=== PATIENT | male | born 1945 | race Caucasian/White ===

== ENCOUNTER 2017-07-07 10:46 | Outpatient (CLI) | payer MEDICARE, OTHER ==
--- NOTE | 2017-07-07 12:04 | CT ---
CT LUMBAR SPINE WITHOUT CONTRAST: Date: 07/07/17 HISTORY: Lumbar fusion. Low back pain. Patient radiates down both legs, left greater than right. COMPARISON: None. TECHNIQUE: Lumbar spine CT is performed without contrast. Reformatted images are submitted for interpretation. FINDINGS: There are five lumbar-type vertebral bodies. Vacuum disc phenomenon at L2-L3, L3-L4, L4-L5, and L5-S1 . There are bilateral transpedicular screws at L4-5. There is mild leftward curvature of the lumbar s pine. With regard to the fusion hardware, no evidence of lucency. No retroperitoneal mass, lymphadenopathy, or hematoma. Punctate nonobstructing calcifications in the left or right renal pelvis. Hypodensity in the liver measures 1.8 cm and has an attenuation coefficient of 12 Hounsfield units. S imple cyst is favored. Limited evaluation of the contents of the central spinal canal and neural foramina due to technique. Lumbar spine vertebral body height is maintained. There are no fractures. T12-L1: No significant central canal stenosis or foraminal narrowing. L1-L2: No significant central canal stenosis or foraminal narrowing. L2-L3: Generalized disc bulge, ligamentum flavum thickening, and facet hypertrophy result in mild central ca nal stenosis. Mild bilateral neural foraminal narrowing. L3-L4: Generalized disc bulge, ligamentum flavum thickening, and facet hypertrophy result in at least mild t o moderate central canal stenosis. Evaluation is limited by beam-attenuation artifact. Moderate right and mild left foraminal narrowing. There appears to be an abnormal soft tissue density in the left s ubarticular zone superior to the L3-L4 disc space suggesting superior disc extrusion. Extruded fragme nt appears to be at least 1.6 cm mediolateral x 1.2 cm anterior posterior. There is presumed mass eff ect and obscuration of the traversing left L3 and possibly L4 nerve roots. Evaluation is limited by t echnique. L4-L5: Limited evaluation by beam attenuation artifact. There appears to be a broad based disc bulge, ligame ntum flavum thickening, and facet hypertrophy that results in at least mild to moderate central canal stenosis. There is mild right foraminal narrowing. Left neural foramen is patent. There is 3.5 mm of anterolisthesis of L4 upon L5. L5-S1: Vacuum disc phenomenon with severe loss of disc space height. Generalized disc bulge without signific ant central canal stenosis. The right neural foramen is patent. Moderate left foraminal narrowing. No te is made of a left hemilaminectomy defect. IMPRESSION: 1. Postsurgical changes of the lumbar spine as above. Evaluation is limited by technique. 2. Varying degrees of central canal stenosis and foraminal narrowing as detailed above. 3. Significant superior disc extrusion at the L3-L4 level, into the left subarticular zone. Better i nterrogation with post myelogram CT may be beneficial. POS: EVON
== END 2017-07-07 10:47 | disposition home or self-care (01) ==
LOC: TBSIIMAG 10:46
PROVIDERS: ATTEND Neurological Surgery
DX: M54.5 Low back pain (principal); M48.061 Spinal stenosis, lumbar region without neurogenic claudication; M99.83 Other biomechanical lesions of lumbar region; M51.26 Other intervertebral disc displacement, lumbar region; Z98.1 Arthrodesis status
CPT/HCPCS: 72131

== ENCOUNTER 2017-08-04 11:27 | Outpatient (CLI) | payer MEDICARE, OTHER | END 2017-08-04 11:28 | disposition home or self-care (01) | LOC: LABBT 11:27 | PROVIDERS: ATTEND Neurological Surgery | DX: Z01.818 Encounter for other preprocedural examination (principal); M54.16 Radiculopathy, lumbar region ==

== ENCOUNTER 2017-08-08 07:29 | Day surgery (SDC) | payer MEDICARE, OTHER ==
[2017-08-04 11:56] VITALS: BMI 27.0
--- NOTE | 2017-08-07 23:13 | HP ---
HISTORY OF PRESENT ILLNESS: Mr. Bui is known to us for previous lumbar diskectomy last year, who returns now for evaluation of significant low back pain as well as left knee pain, which has been com ing on for the last several weeks. He now has a new CT scan performed at [place] that reveals a s uperiorly migrated L3-L4 disk herniation that is the likely cause of his symptoms. He would like to discuss options and then proceed forward with what he feels most comfortable. PAST MEDICAL HISTORY: Significant for arrhythmia, reflux, arthritis, seasonal allergies. PAST SURGICAL HISTORY: Septoplasty, lumbar fusion, lumbar diskectomy. MEDICATIONS: Methotrexate, Paxil, Cardura, Nexium, gabapentin. ALLERGIES: No known drug allergies. PHYSICAL EXAMINATION: NEUROLOGIC: Alert and oriented x3. Gait is severely antalgic. Lower extremity motor exam is normal . ASSESSMENT: Lumbar disk herniation. PLAN: Dr. Castle met with the patient, reviewed imaging and advocated for reoperation left L3 diskect alem. He explained to the patient the risks, benefits, and alternatives to the procedure. The patien t expressed understanding and would like to move forward with surgery as discussed. I do believe the patient is mentally competent and capable of making medical decisions for himself. We will move for sam with surgery as planned. Grant Adams PA-C dictating for Dr. Castle.
[2017-08-08] MEDS ORDERED: CEFAZOLIN/Water 2 GM/20 ML SYRINGE ONE ×2 (08:29→14:14)
[2017-08-08] MEDS ORDERED: Hydrocortisone Sod Succ/PF 100 mg/2 ml Vial ONE (08:30)
[2017-08-08] MEDS ORDERED: Thrombin 5000 UNITS/5 ML VIAL ONE (08:36)
[2017-08-08] MEDS ORDERED: Bupivacaine HCl 0.5%/Epinephrine 1:200,000/PF 30 ml Vial ONE (08:36)
[2017-08-08] MEDS ORDERED: Fentanyl 250 MCG/5 ML VIAL ONE (10:17)
[2017-08-08] MEDS ORDERED: Ondansetron HCl/PF 4 MG/2 ML Vial ONE ×2 (11:05→11:45)
[2017-08-08] MEDS ORDERED: ePHEDrine/0.9% NaCl/PF SYRINGE 50 mg/10 ml ONE (11:45)
[2017-08-08] MEDS ORDERED: Lidocaine 1% PF 5 ML VIAL ONE (11:45)
[2017-08-08] MEDS ORDERED: PROPOFOL 200 MG/20 ML VIAL ONE (11:45)
[2017-08-08] MEDS ORDERED: Glycopyrrolate 0.2 MG/ML 5 ML SYRINGE ONE (11:45)
[2017-08-08] MEDS ORDERED: Tamsulosin HCl 0.4 MG CAP ONE (11:49)
[2017-08-08] MEDS ORDERED: Acetaminophen/Codeine 30-300mg Tablet ONE ×2 (13:34)
--- NOTE | 2017-08-09 14:26 | OP ---
DATE OF PROCEDURE: 08/08/2017 SURGEON: Marcelo Castle M.D. FOOD MIXER ASSEMBLER: Grant Adams PA-C. INDICATION: Pain. DIAGNOSIS: Lumbar radiculopathy. PROCEDURE PERFORMED: L3-L4 discectomy. TECHNIQUE: The patient was brought into the operating room and placed under general anesthesia. He was flipped from a supine to prone position on the operating room table. A linear incision was plann ed over the L3-L4 segment. After prepping and draping and after an appropriate operation, the incisi on was created. There was extensive scar present from the patient's prior operative procedure and th erefore an appropriate surgical modifier will be applied. Self-retaining retractors were placed on t he left and once identifying the appropriate level with C-arm fluoroscopy, a high-speed cutting drill bit as well as 2, 3 and 4 mm Kerrisons were used to perform a laminectomy along the inferior aspect of L3 and the superior aspect of L4. A large disk fragment as well as ligamentous hypertrophy were i dentified and carefully removed until the lateral recesses were well decompressed, which would includ e decompressing the exiting L3 and descending L4 nerve roots. The wound was then irrigated. Hemosta sis was maintained throughout. The wound was then closed in anatomic layers and a pressure dressing was applied. There were no known procedural complications.
== END 2017-08-08 14:25 | disposition home or self-care (01) ==
LOC: SDC 07:29
PROVIDERS: ATTEND Neurological Surgery
PROC: 01NB0ZZ Release Lumbar Nerve, Open Approach (ICD-10-PCS; principal; 2017-08-08)
PROC: 0SB20ZZ Excision of Lumbar Vertebral Disc, Open Approach (ICD-10-PCS; 2017-08-08)
DX: M51.16 Intervertebral disc disorders with radiculopathy, lumbar region (principal); M19.90 Unspecified osteoarthritis, unspecified site; K21.9 Gastro-esophageal reflux disease without esophagitis; Z98.1 Arthrodesis status; Z98.890 Other specified postprocedural states; Z79.899 Other long term (current) drug therapy
CPT/HCPCS: 76001; J0131; J0670; J1720; J2001; J2405; J2704; J3010

== ENCOUNTER 2018-10-13 10:42 | Outpatient (CLI) | payer MEDICARE, OTHER ==
--- NOTE | 2018-10-13 11:18 | RAD ---
XR Lumbar Spine 2 Or 3 View: 10/13/2018 12:00 AM CLINICAL INDICATION: Radiculopathy COMPARISON: 05/25/2016 FINDINGS: Fracture:No acute fracture. Arthropathy:Moderate arthropathy. There is grade I spondylolisthesis of L4-5 with correction demonstrated by extension positioning. Postoperative fusion of the L4-5 level with bilateral pedicle screws and bilateral interconnecting ro ds present. IMPRESSION: 1. Grade 1 spondylolisthesis of L4-5. This does correct upon extension indicating translational motio n.
--- NOTE | 2018-10-13 12:38 | MRI ---
MRI LUMBAR SPINE WITHOUT CONTRAST: COMPARISON: Prior CT lumbar spine dated 07/07/2017 and a lumbar radiograph dated 10/13/2018. FINDINGS: There is instrumentation seen at the L4-L5 intervertebral level, consistent with a posterolateral sp inal fusion. This is stable to the prior examinations. The conus is seen to terminate at approximat blanco L1. The visualized aspects of the posterior fossa and paravertebral soft tissues are unremarkable appeari ng. At L5-S1, there is an asymmetric to the left disk osteophyte complex with facet joint degenerative ch yohan and loss of disk space height, inducing moderate left and mild right neural foraminal narrowing. At L4-L5, there is a residual osteophyte complex with facet hypertrophy and ligamentum flavum hypertr ophy, inducing mild to moderate central canal narrowing. There is moderate to severe right and mild left neural foraminal narrowing at this level. At L3-L4, there is a broad-based disk osteophyte complex with facet joint degenerative change and lig amentum flavum hypertrophy, inducing mild to moderate central canal narrowing and severe right and mo derate left neural foraminal narrowing. At L2-L3, there is an tnfvfxlvfr-oc-uvs-left disk osteophyte complex with facet joint degenerative ch yohan, inducing mild to moderate right and moderate left neural foraminal narrowing. There is a left inferior projecting paracentral disc extrusion, measuring 1.4 cm in craniocaudad length, causing some mild effacement of the ventral subarachnoid space. At L1-L2, there is a broad-based bulge with facet joint degenerative change, but no appreciable centr al canal or neural foraminal narrowing. At T12-L1, there is no appreciable central canal or neural foraminal narrowing. IMPRESSION: 1. Prominent neural foraminal and central canal narrowing seen from L2-L3 through L5-S1, as above. 2. Grade 1 anterolisthesis of L4-L5, with posterolateral spinal instrumentation at L4-L5. 3. Caudad extending left paracentral disc extrusion from L2-L3, extending along the posterior aspect of L3, causing mild effacement of the subarachnoid space, without definite lateral recess impingemen t. POS: TPC
== END 2018-10-13 10:43 | disposition home or self-care (01) ==
LOC: SCSMRI 10:42
PROVIDERS: ATTEND Nurse Practitioner Family
DX: M51.16 Intervertebral disc disorders with radiculopathy, lumbar region (principal); M48.061 Spinal stenosis, lumbar region without neurogenic claudication; M48.07 Spinal stenosis, lumbosacral region; M43.16 Spondylolisthesis, lumbar region
CPT/HCPCS: 72100; 72148

== ENCOUNTER 2019-05-25 10:15 | Outpatient (CLI) | payer MEDICARE, OTHER ==
--- NOTE | 2019-05-25 11:14 | CT ---
CT of thelumbar spine: 05/25/2019 COMPARISON:07/07/2017 HISTORY:Back pain, prior back surgery TECHNIQUE: Serial axial CT imaging at2 mm intervals from thelower thoracic spine through the lower sa carlos without contrast media. Coronal and sagittal reformatted imaging obtained Findings:Posterior fusion hardware with bilateral L4 and L5 pedicle screws noted with vertically orie nted interlocking rods. Subcentimeter bilateral intrarenal calculi are noted measuring up to 3 mm within the upper pole of th e right kidney and measuring up to 4 mm within the upper pole left kidney, only partially visualized on this exam. On the coronal reformatted imaging the L2 vertebral body is demonstrating a moderate degree of sublux ation to the right with respect to the L3 vertebral body. T12-L1: Mild bilateral facet hypertrophy. No osseous cause of significant central canal or neural for aminal stenosis. L1-2: Mild bilateral facet hypertrophy. Mild bilateral neural foraminal stenosis suspected. No osseou s cause of significant central canal stenosis. L2-3: There is severe degenerative endplate change with endplate irregularity and vacuum disc formati on. Disc osteophyte complex suspected. Bilateral facet hypertrophy. There is moderate/severe central canal stenosis with prominent left lateral recess stenosis and at least moderate bilateral ne ural foraminal stenosis, left greater than right. L3-4: There is severe bilateral facet hypertrophy. There is osteophyte encroachment on the neural for sukhdev bilaterally with moderate left and severe right neural foraminal stenosis. There is severe central canal stenosis secondary to disc osteophyte complex and bilateral facet hypertrophy/hypertrop hy of the ligamentum flavum. L4-5: There is prominent disc space narrowing. There is 4 mm of anterolisthesis of L4 on L5. Bilatera l facet hypertrophy is noted with moderate bilateral neural foraminal stenosis. On the basis of posterior osteophyte formation and bilateral facet hypertrophy there is moderate/severe central canal stenosis. L5-S1: There is disc space narrowing with vacuum disc formation. Prominent bilateral facet hypertroph y, left greater than right. Severe left and moderate right neural foraminal stenosis. No significant central canal stenosis. No acute fracture or dislocation. No worrisome lytic or blastic bone lesions. Impression:Multilevel lumbar spine postoperative change. Severe multilevel degenerative change with a ssociated prominent multilevel central canal and neural foraminal stenosis as detailed above. CT myelogram may be beneficial for full assessment.
== END 2019-05-25 10:16 | disposition home or self-care (01) ==
LOC: SCSCT 10:15
PROVIDERS: ATTEND Neurological Surgery
DX: M47.26 Other spondylosis with radiculopathy, lumbar region (principal); M48.061 Spinal stenosis, lumbar region without neurogenic claudication; Z98.890 Other specified postprocedural states
CPT/HCPCS: 72131

== ENCOUNTER 2019-05-30 05:50 | Day surgery (SDC) | payer MEDICARE, OTHER ==
[2019-05-29 11:17] VITALS: BMI 25.1
--- NOTE | 2019-05-29 15:33 | HP ---
HISTORY OF PRESENT ILLNESS: prior lumbar surgeries, who returns now with continued and worsening right lower extremity L3 pains which we discussed in the past. He has been seeing Dr. Warren who has been attempting epidural steroid injections, and while first in October made a tremendous difference, his most recent one in January did not help much or any at all. He does also report some muscle atrophy over the right quadriceps group and some perceived weakness. Walking makes pain severe, bending over improves the pain. MRI from [facility] from September 2018, L3 on the right that would very well fit the symptoms that he is experiencing. PHYSICAL EXAMINATION: GENERAL: On examination, he is alert and oriented x3. Gait is altered and antalgic. He favors the right lower extremity. When he holds his right leg out in front of him in full knee extension, he is only able to do so for about 8 to 10 seconds before he starts to have give-way weakness. This is not the same phenomenon on the left. There is perhaps maybe some mild sensory change disturbance over the right anterior thigh as compared to the left. PAST MEDICAL HISTORY: Significant for BPH, hypertension, unspecified rheumatologic condition, chronic pain syndrome. CURRENT MEDICATIONS: 1. Restasis. 2. Doran. 3. Plaquenil. 4. Mirapex. 5. Focalin XR. 6. Leflunomide. 7. Bystolic. 8. Flomax. PAST SURGICAL HISTORY: L4-L5 fusion, septoplasty, lumbar decompression. ALLERGIES: NO KNOWN DRUG ALLERGIES. ASSESSMENT: Lumbar spinal stenosis or radiculopathy. PLAN: Dr. Castle met with the patient, reviewed imaging, and advocated for reoperation, decompression and foraminotomy at L3 with extension and fusion to L3 bilaterally. He explained the patient risks, benefits, and alternatives to the procedure. The patient expressed understanding and elected to move forward with surgery as discussed. I do believe the patient is mentally competent and capable of making medical decisions for himself. We will move forward with surgery as planned. Job ID: [id number]
[2019-05-30] MEDS ORDERED: Midazolam HCl 2 mg/2 ml Vial ONE (06:11)
[2019-05-30] MEDS ORDERED: HYDROmorphone 0.5 MG/0.5 ML SYRINGE ONE (06:11)
[2019-05-30] MEDS ORDERED: Fentanyl 100 MCG/2 ML VIAL ONE (06:11)
[2019-05-30] MEDS ORDERED: Lidocaine 2% Jelly 5 ML TUBE ONE (06:12)
[2019-05-30] MEDS ORDERED: Thrombin 5000 UNITS/5 ML VIAL ONE (06:23)
[2019-05-30] MEDS ORDERED: EPINEPHrine 1 MG/ML AMP ONE (06:23)
[2019-05-30] MEDS ORDERED: Bupivacaine PF 0.5% 30 ML VIAL ONE (06:23)
[2019-05-30 06:26] LABS: #Eosinphils 0.2 thou/uL (0.0-0.7); #Lymphocytes 1.3 thou/uL (1.20-3.40); #Monocytes 0.6 thou/uL (0.11-0.59); #Neutrophils 3.2 thou/uL (1.40-6.50); %Basophils 0.4 % (0.0-1.0); %Eosinophils 3.7 % (0.0-10.0); %Lymphocytes 25.1 % (21.0-51.0); %Monocytes 10.9 % (0.0-10.0); %Neutrophils 59.9 % (42.0-75.0); Hemoglobin 14.6 g/dL (14.0-18.0); Mean Corpuscular Hemoglobin 32.6 pg (27.0-31.0); Mean Corpuscular Volume 95.8 fL (78.0-98.0); Mean Platelet Volume 8.4 fL (7.4-10.4); Platelet Count 161 thou/uL (130-400); Red Blood Cell (RBC) Count 4.48 mill/uL (4.70-6.10); White Blood Cell (WBC) Count 5.3 thou/uL (4.8-10.8)
[2019-05-30 06:46] LABS: Anion Gap 11 mmol/L (10-20); BUN (Urea Nitrogen) 12 mg/dL (8.4-25.7); Calc. Creatinine Clearance 96 mL/min (70-130); Calcium 9.2 mg/dL (7.8-10.44); Carbon Dioxide 25 mmol/L (23-31); Chloride 107 mmol/L (98-107); Estimated GFR-MDRD Greater than 90; Glucose 104 mg/dL (83-110); Sodium 139 mmol/L (136-145)
[2019-05-30] MEDS ORDERED: Lidocaine 1% PF 5 ML VIAL ONE (09:58)
[2019-05-30] MEDS ORDERED: EPHEDRINE 25 MG/5 ML SYRINGE ONE (09:58)
[2019-05-30] MEDS ORDERED: Ondansetron PF 4 MG/2 ML Vial ONE (09:58)
[2019-05-30] MEDS ORDERED: Rocuronium Bromide 10 MG/ML (10ML VIAL) ONE (09:58)
[2019-05-30] MEDS ORDERED: Glycopyrrolate 0.2 MG/ML 5 ML SYRINGE ONE (09:58)
[2019-05-30] MEDS ORDERED: PHENYLEPHRINE-NS 100 MCG/ML 10 ML SYRINGE ONE (09:58)
[2019-05-30] MEDS ORDERED: Dexamethasone 20 MG/5 ML VIAL ONE (09:58)
[2019-05-30] MEDS ORDERED: PROPOFOL 200 MG/20 ML VIAL ONE (09:58)
[2019-05-30] MEDS ORDERED: Tamsulosin HCl 0.4 MG CAP ONE (10:48)
--- NOTE | 2019-05-30 10:51 | OP ---
DATE OF PROCEDURE: 05/30/2019 RESEARCH AND INSIGHTS EXECUTIVE: Grant Adams PA-C INDICATION: Pain. DIAGNOSIS: Lumbar radiculopathy with lumbar spondylolisthesis. PROCEDURES PERFORMED: Reoperation, exploration of fusion, removal of hardware at L4-L5 bilaterally, placement of pedicle screws at L3 bilaterally, placement of rods across L3 through L5 bilaterally, laminectomy and medial facetectomy at L3-L4 bilaterally, placement of allograft and placement of autograft. ANESTHESIA: General. DESCRIPTION OF PROCEDURE: The patient was brought into the operating room and placed under general anesthesia. He was flipped from the supine to prone position on the operating room table. A linear incision was planned, which incorporated much of a previous incision. After prepping and draping and after an appropriate preoperative pause, the incision was created. The soft tissues were swept away from midline. Self-retaining retractors were placed in the wound for optimal exposure. The patient's prior hardware was identified at L4 and L5. We used the C-arm images to obtain appropriate localization of L3, where a laminectomy was performed. The laminectomy was extended laterally to encompass the medial aspect of the facet joints in order to decompress the lateral recesses and identify the L3 segment. The patient was severely scoliotic with translational move in the lateral plane making the surgery to take longer to appropriately identify structures as well as dissect through scar. The thecal sac was identified at L3-L4 and the L3 pedicles were identified. Pedicle screws were placed in L3 bilaterally with the aid of C-arm fluoroscopy. An intraoperative 3D CT scan was then performed to confirm appropriate placement of hardware. Rods were then placed across L3, L4, and L5 bilaterally and setscrews were placed. These were then final tightened. The L3-L4 segment was slightly distracted in order to decompress the exiting right L3 nerve root further. Allograft and autograft material were then placed within the lateral confines of the instrumentation construct. The wound was irrigated. Hemostasis was maintained throughout. The wound was then closed in anatomic layers and a pressure dressing was applied. There were no known procedural complications. Job ID: [id number]
--- NOTE | 2019-05-31 08:27 | EKG ---
Test Reason : PREOP Blood Pressure : / mmHG Vent. Rate : 066 BPM Atrial Rate : 066 BPM P-R Int : 196 ms QRS Dur : 078 ms QT Int : 422 ms P-R-T Axes : 046 006 056 degrees QTc Int : 442 ms Normal sinus rhythm Normal ECG Confirmed by DR. Kristin LOUISE ([id number]) on 05/31/2019 8:26:58 AM Referred By: ROSALIO Confirmed By:DR. Kristin LOUISE
== END 2019-05-30 15:10 | disposition home or self-care (01) ==
LOC: SDC 05:50
PROVIDERS: ATTEND Neurological Surgery
PROC: 0SG0071 Fusion of Lumbar Vertebral Joint with Autologous Tissue Substitute, Posterior Approach, Posterior Column, Open Approach (ICD-10-PCS; principal; 2019-05-30)
PROC: 01NB0ZZ Release Lumbar Nerve, Open Approach (ICD-10-PCS; 2019-05-30)
PROC: 0QW004Z Revision of Internal Fixation Device in Lumbar Vertebra, Open Approach (ICD-10-PCS; 2019-05-30)
DX: M43.16 Spondylolisthesis, lumbar region (principal); M54.16 Radiculopathy, lumbar region; I10 Essential (primary) hypertension; G89.4 Chronic pain syndrome; N40.0 Benign prostatic hyperplasia without lower urinary tract symptoms; G47.30 Sleep apnea, unspecified; K21.9 Gastro-esophageal reflux disease without esophagitis; M06.9 Rheumatoid arthritis, unspecified; Z79.899 Other long term (current) drug therapy; Z99.89 Dependence on other enabling machines and devices
CPT/HCPCS: 20930; 20936; 22612; 22840; 63012; 76000; 80048; 85025; 93005; C1713 ×2; 93010; J0171; J0690; J1100; J1170; J2001; J2250; J2405; J2704; J3010; S0020

== ENCOUNTER 2019-06-30 10:55 | Inpatient (IN) | payer MEDICARE, OTHER ==
[2019-06-30] MEDS ORDERED: Heparin 1,000 UNITS/ML VIAL ONE (12:57)
[2019-06-30] MEDS ORDERED: Calcium Carbonate 500 MG ChewTAB PO PRN (16:16)
[2019-06-30] MEDS ORDERED: Acetaminophen 325 MG TAB PO PRN (16:16)
[2019-06-30] MEDS ORDERED: Bisacodyl 5 MG TAB PO PRN (16:16)
[2019-06-30] MEDS ORDERED: Ondansetron ODT 4 MG TAB PO PRN (16:16)
[2019-06-30] MEDS ORDERED: Senokot S 8.6-50 MG TAB PO PRN (16:16)
[2019-06-30] MEDS ORDERED: HYDROcodone/Acetaminophen 5/325 mg Tablet PO PRN (16:16)
[2019-06-30] MEDS ORDERED: Vancomycin 1 GM in Premix Bag 1 BAG IVPB SCH (16:45)
--- NOTE | 2019-06-30 17:00 | PDOC.HHP ---
Hospitalist HPI - History of Present Illness Fever, Lower Extremity weakness History of Present Illness: PCP: Dr. Rowan Neurosurgeon: Dr. Castle The H&P was gathered from the patient who is a poor historian. He is alert and oriented x 3, but he is having difficulty recalling the precise timeline of events over the past month. The patient is a 74/M with PMH significant for multiple back surgeries and scoliosis that presents to the hospital as a direct admit from the [facility] for the above complaint. Apparently, the patient underwent a lumbar laminectomy with revision on 05/30/[address] Castle. He reports feeling really good for the first week post surgery. Approximately 1 week after surgery, the patient reports that he developed subjective fever, chills and general malaise. Denies any neck stiffness, cough, SOB, nausea, vomiting or diarrhea. He had some generalized lower back soreness that he thought was similar to kidney stones, which he has had in the past. At some point, he called Dr. Oliver, his urologist, who had him drain and strain his urine, and ordered a CT stone protocol, which apparently was negative for any kidney stones , although the patient reports passing 15-20 small stones in a bucket. He is unclear if this was at home or in the hospital. Either way, his subjective fever, chills and malaise persisted, then he developed some bilateral lower extremity weakness. He was ambulating with a cane and sometimes with a roller walker, stating that he was having to use his upper body alot to remain upright/standing. Denies urinary retention/ incontinence or saddle anesthesia. He called his PCP who instructed him to go to the hospital. He was admitted to the [facility] on 06/27/2019. At the [facility], pneumonia and covid-19 was ruled out. Ultimately, it was determined that the patient had staph bacteremia and MRI of lumbar spine showed osteomyelitis with multiple abscesses. Neurosurgery was consulted and the patient was directly admitted to [facility]. ED Course: Patient was directly admitted. Dr. Davis reviewed MRI and recommended IV antibiotic therapy with PICC line placement for shelter IV therapy. Hospitalist ROS - Review of Systems Constitutional: reports: fever (subjective), chills, weakness, malaise Eyes: denies: pain, vision change, conjunctivae inflammation, eyelid inflammation, redness, other ENT: denies: ear pain, ear discharge, nose pain, nose discharge, nose congestion , mouth pain, mouth swelling, throat pain, throat swelling, other Respiratory: denies: cough, dry, shortness of breath, hemoptysis, SOB with excertion, pleuritic pain, sputum, wheezing, other Cardiovascular: denies: chest pain, palpitations, orthopnea, paroxysmal noc. dyspnea, edema, light headedness, other Gastrointestinal: denies: nausea, vomiting, abdominal pain, diarrhea, constipation, melena, hematochezia, other Genitourinary: denies: dysuria, frequency, incontinence, hematuria, retention, other Musculoskeletal: reports: back pain, leg pain. denies: neck pain, shoulder pain Skin: denies: rash Neurological: reports: weakness. 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: Other (RLS) Renal/: reports: Benign prostatic enlarg., Other (kidney stones) - Past Surgical History Past Surgical History: reports: Cholecystectomy, Other (Back surgeries x 8 Scoliosis Hernia repair) - Family History Family History: reports: Other (Positive for Scoliosis) - Social History Smoking Status: Never smoker Alcohol: reports: Rare Drugs: reports: none Living Situation: With Family Occupation: Lives in [place] with spouse, retired from [employer] Activity level: uses cane/walker - Exam General Appearance: NAD, awake alert Eye: anicteric sclera ENT: normocephalic atraumatic, moist mucosa Neck: supple, no JVD, no lymphadenopathy Heart: RRR, no murmur, no gallops, no rubs, normal peripheral pulses Respiratory: CTAB, no wheezes, no rales, no ronchi, no tachypnea Gastrointestinal: soft, non-tender, non-distended, no guarding, no rigidity Gastrointestinal - other findings: diminished bowel sounds Extremities: no cyanosis, no edema Neurological: cranial nerve grossly intact, no focal deficits Neurological - other findings: HSNE cervical and lumbar spine intact Psychiatric: normal affect, A&O x 3 Hospitalist Results - Labs Result Diagrams: 06/30/19 17:01 06/30/19 17:01 Hospitalist H&P A/P - Problem (1) Osteomyelitis of lumbar spine Code(s): M46.26 - OSTEOMYELITIS OF VERTEBRA, LUMBAR REGION Status: Acute Assessment and Plan: Admit to medical floor, inpatient status Expected length of stay at least 2 midnights Appreciate neurosurgery input Start Vanc and Zosyn IVPB Consult ID Order PICC placement IVF Get CMP, CBC, ESR (2) Bacteremia Code(s): R78.81 - BACTEREMIA Status: Acute Assessment and Plan: Blood CX 2/2 + stap on 06/25/2019 Hemodynamically stable, afebrile Start Vanc and Zosyn IVPB Consult ID IVF hydration Get baseline CMP,CBC at admission (3) Constipated Code(s): K59.00 - CONSTIPATION, UNSPECIFIED Status: Acute Assessment and Plan: LBM 7 days, he is passing flatus Likely secondary to surgery and opioid analgesia Will order prn medications (4) HTN (hypertension) Code(s): I10 - ESSENTIAL (PRIMARY) HYPERTENSION Status: Chronic Assessment and Plan: Blood pressure mildly elevated at admision Will restart home medication, Bystolic when reconciled by nursing Continue to monitor VS q 4 hours (5) BPH (benign prostatic hyperplasia) Code(s): N40.0 - BENIGN PROSTATIC HYPERPLASIA WITHOUT LOWER URINRY TRACT SYMP Status: Chronic Assessment and Plan: Will restart flomax when home meds reconciled by nursing (6) RLS (restless legs syndrome) Status: Chronic Assessment and Plan: Will restart home medications when reconciled by nursing. - Plan Plan: Consult PT/OT GI and DVT prophylaxis Full Code GAMAL Bui at [phone] Young
[2019-06-30 17:11] LABS: #Eosinphils 0.1 thou/uL (0.0-0.7); #Lymphocytes 0.9 thou/uL (1.20-3.40); #Monocytes 0.6 thou/uL (0.11-0.59); #Neutrophils 5.9 thou/uL (1.40-6.50); %Basophils 0.3 % (0.0-1.0); %Eosinophils 1.8 % (0.0-10.0); %Lymphocytes 11.6 % (21.0-51.0); %Monocytes 8.4 % (0.0-10.0); %Neutrophils 77.9 % (42.0-75.0); Hemoglobin 12.3 g/dL (14.0-18.0); Mean Corpuscular HGB CONC 33.3 g/dL (32.0-36.0); Mean Corpuscular Hemoglobin 31.1 pg (27.0-31.0); Mean Corpuscular Volume 93.3 fL (78.0-98.0); Mean Platelet Volume 7.4 fL (7.4-10.4); Platelet Count 262 thou/uL (130-400); RBC Distribution Width 11.7 % (11.5-14.5); Red Blood Cell (RBC) Count 3.97 mill/uL (4.70-6.10); White Blood Cell (WBC) Count 7.5 thou/uL (4.8-10.8)
[2019-06-30 17:32] LABS: ALT (SGPT) 45 U/L (8-55); AST (SGOT) 29 U/L (5-34); Albumin 3.4 g/dL (3.4-4.8); Alkaline Phosphatase 78 U/L (40-110); Anion Gap 14 mmol/L (10-20); BUN (Urea Nitrogen) 8 mg/dL (8.4-25.7); Bilirubin, Total 0.6 mg/dL (0.2-1.2); Calc. Creatinine Clearance 100 mL/min (70-130); Calcium 9.2 mg/dL (7.8-10.44); Carbon Dioxide 24 mmol/L (23-31); Chloride 101 mmol/L (98-107); Estimated GFR-MDRD Greater than 90; Globulin 3.7 g/dL (2.4-3.5); Glucose 102 mg/dL (83-110); Potassium 3.9 mmol/L (3.5-5.1); Protein, Total 7.1 g/dL (5.8-8.1); Sodium 135 mmol/L (136-145)
[2019-06-30] MEDS ORDERED: Polyethylene Glycol 3350 17 GM Packet PO PRN (17:53)
[2019-06-30] MEDS ORDERED: Ipratropium Bromide 0.06% Nasal Inhaler 15ml EA NARE PRN (17:53)
[2019-06-30] MEDS ORDERED: INFLIXIMAB IVPB SCH (18:00)
[2019-06-30] MEDS: Piperacillin/Tazobactam 3.375 GM in Sodium Chloride 0.9% 100 ML IVPB SCH ×2 (18:14→23:25)
[2019-06-30] MEDS: Sodium Chloride 0.9% 1,000 ML IV SCH (18:16)
--- NOTE | 2019-06-30 19:00 | HP ---
50 minutes was spent in combination of evaluating the patient's imaging and history and physical exam face to face. HISTORY OF PRESENT ILLNESS: The patient is a 74-year-old man who in early May, underwent L3 through L5 laminectomy and instrumented fusion by Dr. Castle. He did well for 2 weeks, but then has had issues related to possible kidney stones. Last week, he developed fever and continued progression of back pain with flank pain and was evaluated at [facility]. He was admitted on June 24. At that time, he was found to have mild elevated white count, fever up to 100.7, and Staph epidermidis bacteremia. He was started on vancomycin and the symptoms have improved. He has been afebrile and his white count has normalized. He still has meaningful amount of back pain, but not terribly severe. PHYSICAL EXAMINATION: Reveals normal motor function, although somewhat pain limited with antigravity proximal movement. The patient's wound is well healed, clean, dry, and intact with no fluctuance, erythema, swelling, or drainage. IMAGING STUDIES: CT and MRI scan performed at [facility] were reviewed. These suggest osteomyelitis L3 through L5 and even some possible involvement at L2-3. There does seem to be some psoas phlegmon bilaterally. There is enhancement of the surgical wound and a small fluid collection superiorly focused at the L3 level. There is no compression of any kind. 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 The presumed organism is Staph epidermidis given the bacteremia. He is on vancomycin and has been improving on vancomycin. At this point, the role of surgical washout seemed limited. The amount of fluid in the surgical cavity is quite modest, and the psoas and bony infectious involvement cannot be accessed surgically for washout or debridement. It is my opinion at this time he would be best served by ongoing IV antibiotics and no surgical intervention. If over time, he does not continue to have clinical improvement or if there is any evidence of clinical deterioration, we will need to consider removal of the hardware and more aggressive washout of the surgical cavity. Even then, his bacterial involvement of the bony structures and surrounding psoas musculature will remain and require extensive IV antibiotic treatment. I discussed the plan at length with the patient and expressed his agreement with this plan. We will continue to follow and Dr. Castle will be back Tuesday. Appreciate excellent medical care. Job ID: [id number]
[2019-06-30] MEDS: Vancomycin HCl 1.25 GM in Sodium Chloride 0.9% 250 ML 250 ML IVPB SCH (20:47)
[2019-06-30] MEDS: Leflunomide 10 mg Tablet PO SCH (20:47)
[2019-06-30] MEDS: Famotidine 20 MG TAB PO SCH (20:47)
[2019-06-30] MEDS: Tamsulosin HCl 0.4 MG CAP PO SCH (20:47)
[2019-06-30] MEDS: cycloSPORINE 0.05% Ophthalmic Droperette EA EYE SCH (21:50)
[2019-06-30] MEDS: Hydroxychloroquine Sulfate 200 MG TAB PO SCH (21:50)
[2019-07-01 05:03] LABS: #Eosinphils 0.2 thou/uL (0.0-0.7); #Lymphocytes 1.2 thou/uL (1.20-3.40); #Monocytes 0.8 thou/uL (0.11-0.59); #Neutrophils 4.6 thou/uL (1.40-6.50); %Basophils 0.3 % (0.0-1.0); %Eosinophils 2.9 % (0.0-10.0); %Lymphocytes 17.5 % (21.0-51.0); %Monocytes 12.1 % (0.0-10.0); %Neutrophils 67.2 % (42.0-75.0); Hemoglobin 11.4 g/dL (14.0-18.0); Mean Corpuscular HGB CONC 32.1 g/dL (32.0-36.0); Mean Corpuscular Hemoglobin 30.1 pg (27.0-31.0); Mean Corpuscular Volume 93.7 fL (78.0-98.0); Mean Platelet Volume 7.8 fL (7.4-10.4); Platelet Count 258 thou/uL (130-400); RBC Distribution Width 11.8 % (11.5-14.5); Red Blood Cell (RBC) Count 3.78 mill/uL (4.70-6.10); White Blood Cell (WBC) Count 6.9 thou/uL (4.8-10.8)
[2019-07-01 05:22] LABS: ALT (SGPT) 38 U/L (8-55); AST (SGOT) 22 U/L (5-34); Albumin 3.1 g/dL (3.4-4.8); Alkaline Phosphatase 72 U/L (40-110); Anion Gap 13 mmol/L (10-20); BUN (Urea Nitrogen) 9 mg/dL (8.4-25.7); Bilirubin, Total 0.6 mg/dL (0.2-1.2); Calc. Creatinine Clearance 97 mL/min (70-130); Calcium 8.9 mg/dL (7.8-10.44); Carbon Dioxide 24 mmol/L (23-31); Chloride 103 mmol/L (98-107); Estimated GFR-MDRD Greater than 90; Globulin 3.4 g/dL (2.4-3.5); Glucose 97 mg/dL (83-110); Potassium 4.1 mmol/L (3.5-5.1); Protein, Total 6.5 g/dL (5.8-8.1); Sodium 136 mmol/L (136-145)
[2019-07-01] MEDS: Piperacillin/Tazobactam 3.375 GM in Sodium Chloride 0.9% 100 ML IVPB SCH (05:59)
[2019-07-01] MEDS: Sodium Chloride 0.9% 1,000 ML IV SCH (06:00)
[2019-07-01] MEDS: Famotidine 20 MG TAB PO SCH ×2 (08:54→21:18)
[2019-07-01] MEDS: Pramipexole Di-HCl 0.125 MG TAB PO SCH (08:54)
[2019-07-01] MEDS: Nebivolol HCl 5 MG TAB PO SCH (08:54)
[2019-07-01] MEDS: Finasteride 5 MG TAB PO SCH (08:55)
[2019-07-01] MEDS: cycloSPORINE 0.05% Ophthalmic Droperette EA EYE SCH ×2 (08:55→21:19)
[2019-07-01] MEDS: Enoxaparin Sodium 40 MG/0.4 ML SYRINGE SC SCH (08:55)
[2019-07-01] MEDS: Hydroxychloroquine Sulfate 200 MG TAB PO SCH ×2 (08:55→21:34)
[2019-07-01] MEDS: Docusate 100 MG CAP PO SCH (08:55)
--- NOTE | 2019-07-01 15:32 | PRG ---
DATE OF SERVICE: 07/01/2019 SUBJECTIVE: This is a followup note from my consultation at [facility] when he was initially admitted with fever. MRI demonstrated inflammatory process in the lumbosacral area with diskitis, I believe L2-L3 and paraspinal inflammatory process as well, maybe a little abscess. I believe the L4-L5 was involved as well. He has been transferred here and Dr. Reilly has evaluated this patient, and no surgical intervention for the moment is recommended. He did have Staphylococcus epidermidis with fairly high vancomycin DONNELL. The patient seems to be improving slowly, still with moderate pain in the lumbosacral spine area and he has no respiratory symptoms. Voiding without difficulty. Little bit of constipation. OBJECTIVE: VITAL SIGNS: His temperature has normalized compared with what he had been doing at [facility]. Other vital signs are not remarkable. GENERAL: Awake, alert, oriented. LUNGS: Clear. HEART: S1, S2. Regular rate. ABDOMEN: Soft. Not distended or tender. NEURO: Good. He has nonfocal findings. LABORATORY DATA: White cell count at 6.9, hemoglobin 11, platelets 258 with 67% neutrophils. Sodium 136, creatinine 0.81, albumin 3.1. The microbiology with Staph epidermidis as noted before from June 24. ASSESSMENT AND DISCUSSION: Prior recent fusion of lumbosacral spine area with now fever, worsening lower back pain, and inflammatory process in lumbosacral area. Some of the inflammatory changes are noted above the site of the fusion, some are bright at the site of the fusion. There is some significant amount of paraspinal inflammatory process as well. I believe the blood cultures reflect the organism, which was causing the process and seems to be responding to the vancomycin, and we will have to continue treating this for protracted period of time. PICC line has been ordered and we will place instructions to corrections caseworker. Job ID: [id number]
--- NOTE | 2019-07-01 16:44 | PDOC.HOSPP ---
- Subjective Encounter Date: 07/01/19 Encounter Time: 11:00 Subjective: Patient seen and examined for Lumbar Osteomyelitis. Feels gen weak. Some left sided flank pain. No new complaints. No overnight events - Objective Vital Signs & Weight: Vital Signs (12 hours) Temp Pulse Resp BP Pulse Ox 07/01/19 16:09 98.6 F 81 16 138/76 98 07/01/19 10:59 98.3 F 95 18 113/72 96 07/01/19 07:13 98.7 F 90 16 141/76 H 93 L Weight Weight 182 lb 15.739 oz I&O: 06/30/19 07/01/19 07/02/19 06:59 06:59 06:59 Intake Total 1170 Balance 1170 Result Diagrams: 07/01/19 04:42 07/01/19 04:42 EKG Reviewed by me: Yes (Tele SR) Hospitalist ROS - Review of Systems Respiratory: denies: cough, dry, shortness of breath, hemoptysis, SOB with excertion, pleuritic pain, sputum, wheezing, other Cardiovascular: denies: chest pain, palpitations, orthopnea, paroxysmal noc. dyspnea, edema, light headedness, other Gastrointestinal: denies: nausea, vomiting, abdominal pain, diarrhea, constipation, melena, hematochezia, other - Medication Medications: Active Medications Generic Name Dose Route Start Last Admin Trade Name Freq PRN Reason Stop Dose Admin Cyclosporine 0.4 ml 06/30/19 21:00 07/01/19 08:55 Restasis EA EYE 0.4 ml BID CAROLE Administration Docusate Sodium 100 mg 07/01/19 09:00 07/01/19 08:55 Colace PO 100 mg DAILY CAROLE Administration Enoxaparin Sodium 40 mg 07/01/19 09:00 07/01/19 08:55 Lovenox SC 40 mg 0900 CAROLE Administration Famotidine 20 mg 06/30/19 21:00 07/01/19 08:54 Pepcid PO 20 mg BID CAROLE Administration Finasteride 5 mg 07/01/19 09:00 07/01/19 08:55 Proscar PO 5 mg DAILY CAROLE Administration Hydroxychloroquine Sulfate 200 mg 06/30/19 21:00 07/01/19 08:55 Plaquenil PO 200 mg BID CAROLE Administration Sodium Chloride 1,000 mls @ 75 mls/hr 06/30/19 16:30 07/01/19 06:00 Normal Saline 0.9% IV Not Given .[id number] CAROLE Vancomycin HCl 1.25 gm/ Sodium 250 mls @ 166.667 mls/hr 06/30/19 18:00 20:47 Chloride IVPB 250 mls 1800 CAROLE Administration Leflunomide 30 mg 06/30/19 21:00 06/30/19 20:47 Arava PO 30 mg QPM CAROLE Administration Nebivolol 15 mg 07/01/19 09:00 07/01/19 08:54 Bystolic PO 15 mg DAILY CAROLE Administration Pramipexole Dihydrochloride 0.125 mg 07/01/19 09:00 07/01/19 08:54 Mirapex PO 0.125 mg DAILY CAROLE Administration Tamsulosin HCl 0.4 mg 06/30/19 21:00 06/30/19 20:47 Flomax PO 0.4 mg QPM CAROLE Administration - Exam General Appearance: NAD Neck: supple, no JVD Heart: RRR, no gallops Respiratory: no wheezes, no ronchi Gastrointestinal: non-distended, normal bowel sounds Gastrointestinal - other findings: left flank tenderness Extremities: no cyanosis Neurological: no new deficit Hosp A/P - Plan DVT proph w/SCDs Lumbar Osteomyelitis Staph epi bacteremia HTN RLS RA s/p SVT s/p ablation BPH Hyponatremia PLAN: Cont IV Vancomycin DC Zosyn Cont Bystolic Cont other meds as above ID/NSG input appreciated PICC line
[2019-07-01] MEDS: Vancomycin HCl 1.25 GM in Sodium Chloride 0.9% 250 ML 250 ML IVPB SCH (18:11)
[2019-07-01] MEDS: Tamsulosin HCl 0.4 MG CAP PO SCH (21:18)
[2019-07-01] MEDS: Leflunomide 10 mg Tablet PO SCH (21:19)
[2019-07-01] MEDS: HYDROcodone/Acetaminophen 5/325 mg Tablet PO PRN (21:33)
[2019-07-02] MEDS: Saccharomyces boulardii 250 MG CAP PO SCH (08:50)
[2019-07-02] MEDS: Docusate 100 MG CAP PO SCH (08:50)
[2019-07-02] MEDS: Nebivolol HCl 5 MG TAB PO SCH (08:51)
[2019-07-02] MEDS: Famotidine 20 MG TAB PO SCH ×2 (08:53→20:54)
[2019-07-02] MEDS: Pramipexole Di-HCl 0.125 MG TAB PO SCH (08:54)
[2019-07-02] MEDS: Hydroxychloroquine Sulfate 200 MG TAB PO SCH ×2 (08:54→20:53)
[2019-07-02] MEDS: Finasteride 5 MG TAB PO SCH (08:54)
[2019-07-02] MEDS: HYDROcodone/Acetaminophen 5/325 mg Tablet PO PRN ×2 (08:55→22:13)
[2019-07-02] MEDS: cycloSPORINE 0.05% Ophthalmic Droperette EA EYE SCH ×2 (08:57→20:54)
[2019-07-02] MEDS: Enoxaparin Sodium 40 MG/0.4 ML SYRINGE SC SCH (09:08)
--- NOTE | 2019-07-02 09:41 | SPC ---
Ultrasound and Fluoroscopic guided left upper extremity PICC placement HISTORY: Bacteremia, infection lumbar spine. FINDINGS: Informed consent obtained prior to the procedure. An appropriate access site was determined with ultrasound guidance. The area was then meticulously pr epped and draped in usual sterile fashion. Skin overlying the left basilic vein anesthetized with 1% buffered lidocaine. Utilizing direct sonogr aphic guidance, vascular access is obtained via the left basilic vein, and an 0.018in guidewire was advanced to the distal SVC. Intravascular length is calculated at 46 cm, and the PICC is cut accordin gly. Needle is removed and replaced with a peel-away sheath. The PICC was advanced over the wire. Wire and peel-away sheath were removed. The tip of the catheter overlies the distal SVC. The catheter was accessed and aspirated/flushed easily. Exposure data: 0.1 minutes of fluoroscopic time 399 mGy centimeter squared FINDINGS: Technically successful placement of a 46 centimeter single lumen 5 Khmer left upper extremity PICC l ine. IMPRESSION: Successful ultrasound guided placement of a left upper extremity PICC.
--- NOTE | 2019-07-02 11:07 | PRG ---
DATE OF SERVICE: 07/02/2019 Mr. Bui extension of lumbar fusion construct roughly a month ago, who was admitted over the weekend for bacteremia and what appears to be osteomyelitis and diskitis at the level above his fusion site at L2-L3 as seen on both CT scan and MRI performed at the [facility] before his transfer to [facility]. He already has been seen by Dr. Pena with plan for PICC line placement this morning. His white counts have normalized and on the whole, his back pain is improved as well. His mentation was off some last week according to during our discussion on Tuesday, but this also seems to be much improved. Hopefully, we can proceed with placement of this line. Continue antibiotics and set up home health delivery of his PICC line antibiotics. At this time, we will still intend to pursue this from a medical line of treatment only. Can advance with PT and OT as tolerated. After PICC line placement today, he can advance diet as tolerated as well. We will continue to follow along. Job ID: [id number]
--- NOTE | 2019-07-02 13:51 | PDOC.HOSPP ---
- Subjective Encounter Date: 07/02/19 Encounter Time: 12:30 Subjective: Patient seen and examined for Lumbar Osteo. Back pain improving. No fever or chills. No new complaints. No overnight events - Objective Vital Signs & Weight: Vital Signs (12 hours) Temp Pulse Resp BP Pulse Ox 07/02/19 11:00 98.2 F 79 16 126/72 97 07/02/19 07:09 98.5 F 90 16 150/78 H 98 07/02/19 03:49 99.4 F 86 16 150/80 H 97 Weight Weight 182 lb 15.739 oz I&O: 07/01/19 07/02/19 07/03/19 06:59 06:59 06:59 Intake Total 1170 900 Output Total 600 Balance 1170 300 Result Diagrams: 07/01/19 04:42 07/01/19 04:42 Hospitalist ROS - Review of Systems Respiratory: denies: cough, dry, shortness of breath, hemoptysis, SOB with excertion, pleuritic pain, sputum, wheezing, other Cardiovascular: denies: chest pain, palpitations, orthopnea, paroxysmal noc. dyspnea, edema, light headedness, other Gastrointestinal: denies: nausea, vomiting, abdominal pain, diarrhea, constipation, melena, hematochezia, other - Medication Medications: Active Medications Generic Name Dose Route Start Last Admin Trade Name Freq PRN Reason Stop Dose Admin Hydrocodone Bitart/Acetaminophen 1 tab 06/30/19 16:16 07/02/19 08:55 [place] 5/325 PO 1 tab Q4H PRN Administration Moderate Pain (4-6) Cyclosporine 0.4 ml 06/30/19 21:00 07/02/19 08:57 Restasis EA EYE 0.4 ml BID CAROLE Administration Docusate Sodium 100 mg 07/01/19 09:00 07/02/19 08:50 Colace PO 100 mg DAILY CAROLE Administration Enoxaparin Sodium 40 mg 07/01/19 09:00 07/02/19 09:08 Lovenox SC Not Given 0900 CAROLE Famotidine 20 mg 06/30/19 21:00 07/02/19 08:53 Pepcid PO 20 mg BID CAROLE Administration Finasteride 5 mg 07/01/19 09:00 07/02/19 08:54 Proscar PO 5 mg DAILY CAROLE Administration Hydroxychloroquine Sulfate 200 mg 06/30/19 21:00 07/02/19 08:54 Plaquenil PO 200 mg BID CAROLE Administration Vancomycin HCl 1.25 gm/ Sodium 250 mls @ 166.667 mls/hr 06/30/19 18:00 18:11 Chloride IVPB 250 mls 1800 CAROLE Administration Leflunomide 30 mg 06/30/19 21:00 07/01/19 21:19 Arava PO 30 mg QPM CAROLE Administration Nebivolol 15 mg 07/01/19 09:00 07/02/19 08:51 Bystolic PO 15 mg DAILY CAROLE Administration Pramipexole Dihydrochloride 0.125 mg 07/01/19 09:00 07/02/19 08:54 Mirapex PO 0.125 mg DAILY CAROLE Administration Saccharomyces Boulardii 250 mg 07/02/19 09:00 07/02/19 08:50 Florastor PO 250 mg DAILY CAROLE Administration Tamsulosin HCl 0.4 mg 06/30/19 21:00 07/01/19 21:18 Flomax PO 0.4 mg QPM CAROLE Administration - Exam General Appearance: NAD Neck: supple, no JVD Heart: RRR, no gallops Respiratory: no wheezes, no ronchi Gastrointestinal: non-tender, normal bowel sounds Extremities: no cyanosis Neurological: no new deficit Hosp A/P - Plan DVT proph w/SCDs Lumbar Osteomyelitis Staph epi bacteremia HTN RLS RA s/p SVT s/p ablation BPH Hyponatremia PLAN: Cont IV Vancomycin per ID s/p PICC line Cont Bystolic and other meds as above Cont Probiotics
--- NOTE | 2019-07-02 15:58 | PRG ---
DATE OF SERVICE: 07/02/2019 SUBJECTIVE: Still a little bit confused. He sometimes has difficulty in finding words, but he is oriented. I spoke with his today and explained his illness. The back pain is a little bit better. He is able to ambulate without difficulty. No shortness of breath or abdominal pain OBJECTIVE: VITAL SIGNS: He has been afebrile, T-max 99.4. Other vital signs are normal. GENERAL: Awake and alert. LUNGS: Clear. HEART: S1 and S2. Regular rate. ABDOMEN: Soft. Not distended. EXTREMITIES: Moves extremities equally. LABORATORY DATA: Sodium 136, creatinine 0.81. Liver profile, normal. Albumin 3.1. White cell count 6.9, hemoglobin 11.4, platelets 258. ASSESSMENT AND DISCUSSION: Prior fusion in the lumbosacral spine area with postoperative infection, likely due to Staphylococcus epidermidis with bacteremia. The patient to continue on IV vancomycin or daptomycin in the outpatient setting for protracted period of time. Discharge planning, I believe, is for tomorrow. Job ID: [id number]
[2019-07-02] MEDS: Vancomycin HCl 1.25 GM in Sodium Chloride 0.9% 250 ML 250 ML IVPB SCH (18:31)
[2019-07-02] MEDS: Leflunomide 10 mg Tablet PO SCH (20:54)
[2019-07-02] MEDS: Tamsulosin HCl 0.4 MG CAP PO SCH (20:54)
[2019-07-03] MEDS: Nebivolol HCl 5 MG TAB PO SCH (08:53)
[2019-07-03] MEDS: Docusate 100 MG CAP PO SCH (08:53)
[2019-07-03] MEDS: Pramipexole Di-HCl 0.125 MG TAB PO SCH (08:54)
[2019-07-03] MEDS: cycloSPORINE 0.05% Ophthalmic Droperette EA EYE SCH ×2 (08:54→21:09)
[2019-07-03] MEDS: Finasteride 5 MG TAB PO SCH (08:54)
[2019-07-03] MEDS: Saccharomyces boulardii 250 MG CAP PO SCH (08:54)
[2019-07-03] MEDS: Hydroxychloroquine Sulfate 200 MG TAB PO SCH ×2 (08:54→21:09)
[2019-07-03] MEDS: Famotidine 20 MG TAB PO SCH ×2 (08:54→21:09)
[2019-07-03] MEDS: Enoxaparin Sodium 40 MG/0.4 ML SYRINGE SC SCH (08:55)
--- NOTE | 2019-07-03 12:03 | PRG ---
DATE OF SERVICE: 07/03/2019 Mr. Bui is overall doing pretty well today. His pain is at minimum. He is relatively confused and wanting to get out of the hospital. I think this maybe a reasonable plan for today pending confirmation of his outpatient antibiotics being set up. We will follow up with Case Management for this purpose. He is oriented. He understands his condition and understands where he is and what is happening. Knows the day of the week, just still has waxing and waning confusion regarding how he got here and perseverates at times asking me similar questions throughout our conversation. We will plan to reach out to the as well today. Job ID: [id number]
[2019-07-03 17:36] LABS: Vancomycin, Trough 5.3 ug/mL
--- NOTE | 2019-07-03 18:03 | PDOC.HOSPP ---
- Subjective Encounter Date: 07/03/19 Encounter Time: 12:30 Subjective: Patient seen and examined for Osteomyelitis. Pain improving. No fever or chills. No new complaints. No overnight events - Objective Vital Signs & Weight: Vital Signs (12 hours) Temp Pulse Resp BP Pulse Ox 07/03/19 17:18 98.1 F 93 14 153/91 H 97 07/03/19 11:39 98.0 F 101 H 14 127/73 96 07/03/19 07:50 98.3 F 91 18 130/82 96 Weight Weight 182 lb 15.739 oz I&O: 07/02/19 07/03/19 07/04/19 06:59 06:59 06:59 Intake Total 900 1130 Output Total 600 150 Balance 300 980 Result Diagrams: 07/01/19 04:42 07/01/19 04:42 Hospitalist ROS - Review of Systems Respiratory: denies: cough, dry, shortness of breath, hemoptysis, SOB with excertion, pleuritic pain, sputum, wheezing, other Cardiovascular: denies: chest pain, palpitations, orthopnea, paroxysmal noc. dyspnea, edema, light headedness, other Gastrointestinal: denies: nausea, vomiting, abdominal pain, diarrhea, constipation, melena, hematochezia, other - Medication Medications: Active Medications Generic Name Dose Route Start Last Admin Trade Name Freq PRN Reason Stop Dose Admin Hydrocodone Bitart/Acetaminophen 1 tab 06/30/19 16:16 07/02/19 22:13 [place] 5/325 PO 1 tab Q4H PRN Administration Moderate Pain (4-6) Hydrocodone Bitart/Acetaminophen 2 tab 06/30/19 16:16 07/03/19 03:35 [place] 5/325 PO 2 tab Q4H PRN Administration Severe Pain (7-10) Bisacodyl 10 mg 06/30/19 16:16 07/02/19 15:59 Dulcolax PO 10 mg DAILYPRN PRN Administration Constipation Cyclosporine 0.4 ml 06/30/19 21:00 07/03/19 08:54 Restasis EA EYE 0.4 ml BID CAROLE Administration Docusate Sodium 100 mg 07/01/19 09:00 07/03/19 08:53 Colace PO 100 mg DAILY CAROLE Administration Enoxaparin Sodium 40 mg 07/01/19 09:00 07/03/19 08:55 Lovenox SC 40 mg 0900 CAROLE Administration Famotidine 20 mg 06/30/19 21:00 07/03/19 08:54 Pepcid PO 20 mg BID CAROLE Administration Finasteride 5 mg 07/01/19 09:00 07/03/19 08:54 Proscar PO 5 mg DAILY CAROLE Administration Hydroxychloroquine Sulfate 200 mg 06/30/19 21:00 07/03/19 08:54 Plaquenil PO 200 mg BID CAROLE Administration Leflunomide 30 mg 06/30/19 21:00 07/02/19 20:54 Arava PO 30 mg QPM CAROLE Administration Nebivolol 15 mg 07/01/19 09:00 07/03/19 08:53 Bystolic PO 15 mg DAILY CAROLE Administration Pramipexole Dihydrochloride 0.125 mg 07/01/19 09:00 07/03/19 08:54 Mirapex PO 0.125 mg DAILY CAROLE Administration Saccharomyces Boulardii 250 mg 07/02/19 09:00 07/03/19 08:54 Florastor PO 250 mg DAILY CAROLE Administration Tamsulosin HCl 0.4 mg 06/30/19 21:00 07/02/19 20:54 Flomax PO 0.4 mg QPM CAROLE Administration - Exam General Appearance: NAD Heart: RRR, no gallops Respiratory: no wheezes, no ronchi Gastrointestinal: non-tender, normal bowel sounds Neurological: no new deficit Hosp A/P - Plan DVT proph w/SCDs Lumbar Osteomyelitis - on IV Vancomycin - s/p PICC line Staph epi bacteremia HTN RLS RA s/p SVT s/p ablation BPH Hyponatremia PLAN: Cont IV Atbx per ID Cont other meds as above Cont Probiotics Monitor Vancomycin level Await outpt Atbx setup [facility] setup
[2019-07-03] MEDS: Vancomycin HCl 1.25 GM in Sodium Chloride 0.9% 250 ML 250 ML IVPB SCH (18:43)
[2019-07-03] MEDS: Tamsulosin HCl 0.4 MG CAP PO SCH (21:09)
[2019-07-03] MEDS: Leflunomide 10 mg Tablet PO SCH (21:09)
[2019-07-03] MEDS: HYDROcodone/Acetaminophen 5/325 mg Tablet PO PRN (21:18)
[2019-07-04] MEDS: Vancomycin HCl 1.25 GM in Sodium Chloride 0.9% 250 ML 250 ML IVPB SCH (06:24)
[2019-07-04] MEDS: cycloSPORINE 0.05% Ophthalmic Droperette EA EYE SCH (08:37)
[2019-07-04] MEDS: Nebivolol HCl 5 MG TAB PO SCH (08:37)
[2019-07-04] MEDS: Pramipexole Di-HCl 0.125 MG TAB PO SCH (08:37)
[2019-07-04] MEDS: Saccharomyces boulardii 250 MG CAP PO SCH (08:37)
[2019-07-04] MEDS: Enoxaparin Sodium 40 MG/0.4 ML SYRINGE SC SCH (08:38)
[2019-07-04] MEDS: Famotidine 20 MG TAB PO SCH (08:38)
[2019-07-04] MEDS: Hydroxychloroquine Sulfate 200 MG TAB PO SCH (08:38)
[2019-07-04] MEDS: Docusate 100 MG CAP PO SCH (08:38)
[2019-07-04] MEDS: Finasteride 5 MG TAB PO SCH (08:38)
--- NOTE | 2019-07-04 09:30 | PDOC.HOSPP ---
- Subjective Encounter Date: 07/04/19 Encounter Time: 09:00 Subjective: Patient seen and examined for Lumbar Osteo. No new fever/back pain or b-b incontinence. No new complaints. No overnight events - Objective Vital Signs & Weight: Vital Signs (12 hours) Temp Pulse Resp BP Pulse Ox 07/04/19 07:27 97.9 F 86 16 123/63 95 07/04/19 03:39 98.3 F 75 16 139/84 95 07/03/19 23:51 98.8 F 84 16 127/65 94 L Weight Weight 182 lb 15.739 oz I&O: 07/03/19 07/04/19 07/05/19 06:59 06:59 06:59 Intake Total 1130 Output Total 150 200 Balance 980 -200 Result Diagrams: 07/01/19 04:42 07/01/19 04:42 Hospitalist ROS - Review of Systems Respiratory: denies: cough, dry, shortness of breath, hemoptysis, SOB with excertion, pleuritic pain, sputum, wheezing, other Cardiovascular: denies: chest pain, palpitations, orthopnea, paroxysmal noc. dyspnea, edema, light headedness, other Gastrointestinal: denies: nausea, vomiting, abdominal pain, diarrhea, constipation, melena, hematochezia, other - Medication Medications: Active Medications Generic Name Dose Route Start Last Admin Trade Name Freq PRN Reason Stop Dose Admin Acetaminophen 650 mg 06/30/19 16:16 07/04/19 06:24 Tylenol PO 650 mg Q4H PRN Administration Headache/Fever/Mild Pain (1-3) Hydrocodone Bitart/Acetaminophen 1 tab 06/30/19 16:16 07/03/19 21:18 [place] 5/325 PO 1 tab Q4H PRN Administration Moderate Pain (4-6) Hydrocodone Bitart/Acetaminophen 2 tab 06/30/19 16:16 07/03/19 03:35 [place] 5/325 PO 2 tab Q4H PRN Administration Severe Pain (7-10) Bisacodyl 10 mg 06/30/19 16:16 07/02/19 15:59 Dulcolax PO 10 mg DAILYPRN PRN Administration Constipation Cyclosporine 0.4 ml 06/30/19 21:00 07/04/19 08:37 Restasis EA EYE 0.4 ml BID CAROLE Administration Docusate Sodium 100 mg 07/01/19 09:00 07/04/19 08:38 Colace PO 100 mg DAILY CAROLE Administration Enoxaparin Sodium 40 mg 07/01/19 09:00 07/04/19 08:38 Lovenox SC 40 mg 0900 CAROLE Administration Famotidine 20 mg 06/30/19 21:00 07/04/19 08:38 Pepcid PO 20 mg BID CAROLE Administration Finasteride 5 mg 07/01/19 09:00 07/04/19 08:38 Proscar PO 5 mg DAILY CAROLE Administration Hydroxychloroquine Sulfate 200 mg 06/30/19 21:00 07/04/19 08:38 Plaquenil PO 200 mg BID CAROLE Administration Vancomycin HCl 1.25 gm/ Sodium 250 mls @ 166.667 mls/hr 07/03/19 18:00 06:24 Chloride IVPB 250 mls 0600,1800 CAROLE Administration Leflunomide 30 mg 06/30/19 21:00 07/03/19 21:09 Arava PO 30 mg QPM CAROLE Administration Nebivolol 15 mg 07/01/19 09:00 07/04/19 08:37 Bystolic PO 15 mg DAILY CAROLE Administration Pramipexole Dihydrochloride 0.125 mg 07/01/19 09:00 07/04/19 08:37 Mirapex PO 0.125 mg DAILY CAROLE Administration Saccharomyces Boulardii 250 mg 07/02/19 09:00 07/04/19 08:37 Florastor PO 250 mg DAILY CAROLE Administration Tamsulosin HCl 0.4 mg 06/30/19 21:00 07/03/19 21:09 Flomax PO 0.4 mg QPM CAROLE Administration - Exam General Appearance: NAD Heart: RRR, no gallops Respiratory: no wheezes, no ronchi Gastrointestinal: non-tender, normal bowel sounds Extremities: no cyanosis Neurological: no new deficit Hosp A/P - Plan DVT proph w/SCDs Lumbar Osteomyelitis - on IV Vancomycin - s/p PICC line Staph epi bacteremia Toxic Metabolic Encephalopathy HTN RLS RA s/p SVT s/p ablation BPH Hyponatremia PLAN: Cont IV Vancomycin per ID Vancomycin level in AM Cont other meds as above AM labs Await outpt Atbx /[facility] setup
[2019-07-04 16:41] VITALS: BP 159/94; TEMP 97.6
--- NOTE | 2019-07-04 21:13 | PQF ---
DATE: 07-04-19 ATTN: DR. JAIME ADAMS Please exercise your independent, professional judgment in responding to the clarification form. Clinical indicators are provided on the bottom of this form for your review Please check appropriate box(s): [ ] Encephalopathy: Type: [ ] Acute [ ] Subacute [ ] Chronic Etiology: [ ] Metabolic [ ] Toxic [ ] Other (please specify) [ ] Transient Alteration of Awareness [ ] Other diagnosis [ ] Unable to determine In addition, please specify: Present on Admission (POA): [ ] Yes [ ] No [ ] Unable to determine For continuity of documentation, please document condition throughout progress notes and discharge summary. Thank You. CLINICAL INDICATORS - SIGNS / SYMPTOMS / LABS / RESULTS AND LOCATION IN EMR: CARLITO REDMAN 07-02-19: HIS MENTATION WAS OFF SOME LAST WEEK ACCORDING TO HIS DURING OUR DISCUSSION ON TUESDAY, BUT THIS ALSO SEEMS TO BE MUCH IMPROVED. CARLITO REDMAN 07-03-19: HE IS RELATIVELY CONFUSED AND WANTING TO GET OUT OF THE HOSPITAL. WAXING AND WANING CONFUSION REGARDING HOW HE GOT HERE AND PERSEVERATES AT TIMES ASKING ME SIMILAR QUESTIONS THROUGHOUT OUR CONVERSATION. CONSULT NOTE DR. RUIZ 07-02-19: STILL A LITTLE BIT CONFUSED. RISK FACTORS / RESULTS AND LOCATION IN EMR: PN DR. ADAMS 07-01-19: LUMBAR OSTEOMYELITIS, STAPH EPI BACTEREMIA, HTN, RLS, RA, HYPONATREMIA TREATMENTS / RESULTS AND LOCATION IN EMR: DR. ADAMS 07-01-19: CONTINUE IV VANCOMYCIN, D/C ZOSYN (This form is maintained as a part of the permanent medical record) 2014 [employer]. All Rights Reserved CIARAN [email or web address]
--- NOTE | 2019-07-07 22:21 | PQF ---
[employer] Exercise Physiologist Crystal Reports Winform TianANTONELLAKOBECarliCARLITO ARECHIGA MD [id number] [facility] A- [id number] CLINICAL DOCUMENTATION CLARIFICATION FORM: POST DISCHARGE Addendum to original discharge summary date: ____ Late entry note date: __ DATE: 07/07/19 ATTN: Devin Luis Please exercise your independent, professional judgment in responding to the clarification form. Clinical indicators are provided on the bottom of this form for your review Please check appropriate box(es): [ ]Sepsis [ x ] Bacteremia [ ] Localized infection without sepsis [ ] Other diagnosis [ ] Unable to determine In addition, please specify: Present on Admission (POA): [ x ] Yes [ ] No [ ] Unable to determine For continuity of documentation, please document condition throughout progress notes and discharge summary. Thank You. CLINICAL INDICATORS - SIGNS / SYMPTOMS / LABS Patient does seem to have a postoperative osteomyelitis with soft tissue involvement. The presumed organism is Staph epidermidis given the bacteremia - H and P dated 06/29 by Carlito Reilly Bacteremia, blood CX 2/2 + Stap on 06/25/2019 - H and P dated 06/29 by Arya Powell Lumbar osteomyelitis, Staph epi bacteremia - Hospitalist progress note dated 06/30 by Devin Russell Prior fusion in the lumbosacral spine area with postoperative infection likely due to Staphylococcus epidermidis with bacteremia - Progress note dated 07/01 by Roberto Meredith [employer] Lumbar osteomyelitis - Hospitalist progress note dated 07/02 by Janelle Patel Staph epi bacteremia - Hospitalist progress note dated 07/02 by Janelle Patel Recent L3-L5 laminectomy and fusion surgery - H and P dated 06/29 by Carlito Reilly TREATMENTS: IV Vancomycin from 06/29 to 07/02 - Medications PICC line placement dated 07/[address] Pawel Dunbar - Interventional procedure dated 07/01 [employer] Exercise Physiologist Crystal Reports Winform Viewer(This form is maintained as a part of the permanent medical record) 2014 [employer] All Rights Reserved Queta [email or web address]
== END 2019-07-04 15:05 | disposition home health service (06) | DRG 862 ==
LOC: SURG A 14:29
PROVIDERS: ADMIT Neurological Surgery; ATTEND Internal Medicine
PROC: 02HV33Z Insertion of Infusion Device into Superior Vena Cava, Percutaneous Approach (ICD-10-PCS; principal; 2019-07-02)
PROC: B518YZA Fluoroscopy of Superior Vena Cava using Other Contrast, Guidance (ICD-10-PCS; 2019-07-02)
PROC: B548ZZA Ultrasonography of Superior Vena Cava, Guidance (ICD-10-PCS; 2019-07-02)
DX: T81.49XA Infection following a procedure, other surgical site, initial encounter (principal); G92 Toxic encephalopathy; M46.26 Osteomyelitis of vertebra, lumbar region; E87.1 Hypo-osmolality and hyponatremia; R78.81 Bacteremia; B95.7 Other staphylococcus as the cause of diseases classified elsewhere; I10 Essential (primary) hypertension; N40.0 Benign prostatic hyperplasia without lower urinary tract symptoms; G25.81 Restless legs syndrome; K59.03 Drug induced constipation; T40.2X5A Adverse effect of other opioids, initial encounter; M06.9 Rheumatoid arthritis, unspecified; Y83.8 Other surgical procedures as the cause of abnormal reaction of the patient, or of later complication, without mention of misadventure at the time of the procedure; Z90.49 Acquired absence of other specified parts of digestive tract
CPT/HCPCS: 36415; 36569; 80053; 80202; 83735; 85025; 85652; C1751; J1644; J1650; J2543; J3370; J3490; J7050

== ENCOUNTER 2021-08-05 08:37 | Outpatient (CLI) | payer MEDICARE, OTHER | END 2021-08-05 08:38 | disposition home or self-care (01) | LOC: SCSCT 08:37 | PROVIDERS: ATTEND Neurological Surgery | DX: M54.50 Low back pain, unspecified (principal); M47.816 Spondylosis without myelopathy or radiculopathy, lumbar region; M47.817 Spondylosis without myelopathy or radiculopathy, lumbosacral region; Z98.1 Arthrodesis status | CPT/HCPCS: 72131 ==

== ENCOUNTER 2022-06-07 09:49 | Outpatient (CLI) | payer MEDICARE, OTHER ==
[2022-06-07 11:07] LABS: #Basophils 0.1 10x3/uL (0.0-0.2); #Eosinphils 0.2 10x3/uL (0.0-0.5); #Monocytes 0.5 10x3/uL (0.0-1.1); #Neutrophils 2.8 10x3/uL (1.5-8.4); %Basophils 1.2 % (0.0-2.0); %Eosinophils 3.8 % (0.0-6.0); %Neutrophils 67.5 % (40.0-75.0); Hemoglobin 13.2 g/dL (13.5-17.5); Mean Corpuscular HGB CONC 31.7 g/dL (32.0-36.0); Mean Corpuscular Hemoglobin 29.7 pg (27.0-33.0); Mean Corpuscular Volume 93.7 fl (81.2-95.1); Mean Platelet Volume 11.5 fl (7.4-10.4); Platelet Count 172 10x3/uL (150-450); RBC Distribution Width 13.9 % (11.5-14.5); Red Blood Cell (RBC) Count 4.45 10x6/uL (4.32-5.72); White Blood Cell (WBC) Count 4.2 10x3/uL (3.5-10.5)
[2022-06-07 11:32] LABS: Anion Gap 12 mmol/L (10-20); BUN (Urea Nitrogen) 11 mg/dL (8.4-25.7); Calc. Creatinine Clearance 0 mL/min (70-130); Carbon Dioxide 25 mmol/L (23-31); Chloride 108 mmol/L (98-107); Estimated GFR 91; Glucose 106 mg/dL (83-110); Potassium 4.1 mmol/L (3.5-5.1); Sodium 141 mmol/L (136-145)
== END 2022-06-07 09:50 | disposition home or self-care (01) ==
LOC: LABBT 09:49
PROVIDERS: ATTEND Orthopaedic Surgery
DX: Z01.818 Encounter for other preprocedural examination (principal); M12.812 Other specific arthropathies, not elsewhere classified, left shoulder
CPT/HCPCS: 80048; 85025; 93005; 93010

== ENCOUNTER 2022-06-10 05:45 | Day surgery (SDC) | payer MEDICARE, OTHER ==
[2022-06-08 12:10] VITALS: BMI 27.6
[2022-06-10] MEDS ORDERED: Tranexamic Acid 1,000 MG/10 ML VIAL ONE (05:58)
[2022-06-10] MEDS ORDERED: Vancomycin (BATCH) 1.5 GRAM/300 ML BAG ONE (05:58)
[2022-06-10] MEDS ORDERED: Sodium Chloride 0.9% 100 ML ONE ×2 (05:58→07:12)
[2022-06-10] MEDS ORDERED: fentaNYL PF 100 MCG/2 ML SYRINGE ONE (06:25)
[2022-06-10] MEDS ORDERED: Ropivacaine 0.2% HCl/PF 20 ML ONE (06:32)
[2022-06-10] MEDS ORDERED: Ropivacaine 0.5% HCl/PF (150 MG/30 ML VIAL) ONE (06:32)
[2022-06-10] MEDS ORDERED: HYDROcodone/Acetaminophen 10/325 mg Tablet PO PRN ×4 (06:42→09:15)
[2022-06-10] MEDS ORDERED: Ipratropium Bromide 0.06% Nasal Inhaler 15ml EA NARE PRN (06:44)
[2022-06-10 06:57] LABS: SARS-CoV-2 NAA Rapid Test Not Detected (NotDetected)
[2022-06-10] MEDS ORDERED: CEFAZOLIN 2 GM VIAL ONE (07:12)
[2022-06-10] MEDS ORDERED: Lidocaine 1% PF 5 ML VIAL ONE (07:32)
[2022-06-10] MEDS ORDERED: Glycopyrrolate 0.2 MG/ML 5 ML SYRINGE ONE (07:32)
[2022-06-10] MEDS ORDERED: NEOSTIGMINE 3 MG/3 ML SYR 3 MG/3 ML SYRINGE ONE (07:32)
[2022-06-10] MEDS ORDERED: Ondansetron PF 4 MG/2 ML Vial ONE (07:32)
[2022-06-10] MEDS ORDERED: Rocuronium Bromide 10 MG/ML (10ML VIAL) ONE (07:32)
[2022-06-10] MEDS ORDERED: PROPOFOL 200 MG/20 ML VIAL ONE (07:32)
[2022-06-10] MEDS ORDERED: Dexamethasone 20 MG/5 ML VIAL ONE (07:32)
[2022-06-10] MEDS ORDERED: METHYLPHENIDATE HCL 40 MG PO SCH (09:00)
[2022-06-10] MEDS ORDERED: Promethazine HCl 25 MG/ML VIAL IM PRN ×2 (09:04→09:15)
[2022-06-10] MEDS ORDERED: Ondansetron HCl/PF 4 MG/2 ML Vial IVP PRN (09:04)
[2022-06-10] MEDS ORDERED: FENTANYL 50 MCG/ML 1 ML VIAL SLOW IVP PRN (09:10)
[2022-06-10] MEDS ORDERED: Ropivacaine 0.2% 550 ML 550 ML NERVE BLCK SCH (09:15)
[2022-06-10] MEDS ORDERED: Zolpidem Tartrate 5 MG TAB PO PRN (09:15)
[2022-06-10] MEDS ORDERED: traMADol HCl 50 MG TAB PO PRN ×2 (09:15)
[2022-06-10] MEDS ORDERED: Ondansetron PF 4 MG/2 ML Vial IVP PRN (09:15)
[2022-06-10] MEDS: Ketorolac Tromethamine 30 MG/ML VIAL IVP SCH ×4 (12:15→23:40)
[2022-06-10] MEDS: CEFAZOLIN 2 GM in Sodium Chloride 0.9% 100 ML IVPB SCH ×2 (15:01→22:30)
[2022-06-10] MEDS: cycloSPORINE 0.05% Ophthalmic Droperette EA EYE SCH ×2 (15:02→22:33)
[2022-06-10] MEDS: Finasteride 5 MG TAB PO SCH (15:03)
[2022-06-10] MEDS: Pramipexole Di-HCl 0.125 MG TAB PO SCH (15:03)
[2022-06-10] MEDS: PARoxetine 20 MG TAB PO SCH ×2 (15:03→16:44)
[2022-06-10] MEDS: Nebivolol HCl 5 MG TAB PO SCH (15:04)
[2022-06-10] MEDS: Hydroxychloroquine Sulfate 200 MG TAB PO SCH ×2 (15:04→22:32)
[2022-06-10] MEDS ORDERED: FLU VACC QS2022-23(65YR UP)/PF 240 MCG/0.7 ML SYRINGE IM ONE (18:00)
[2022-06-10] MEDS ORDERED: Tamsulosin HCl 0.4 MG CAP PO SCH (21:00)
[2022-06-10] MEDS ORDERED: Leflunomide 10 mg Tablet PO SCH (21:00)
[2022-06-11] MEDS: Ketorolac Tromethamine 30 MG/ML VIAL IVP SCH (06:44)
[2022-06-11] MEDS: Nebivolol HCl 5 MG TAB PO SCH (08:23)
[2022-06-11] MEDS: PARoxetine 20 MG TAB PO SCH (08:24)
[2022-06-11] MEDS: Finasteride 5 MG TAB PO SCH (08:24)
[2022-06-11 08:42] VITALS: BP 162/77; TEMP 98.4
[2022-06-11] MEDS: Pramipexole Di-HCl 0.125 MG TAB PO SCH (08:53)
[2022-06-11] MEDS: Hydroxychloroquine Sulfate 200 MG TAB PO SCH (08:53)
[2022-06-11] MEDS: cycloSPORINE 0.05% Ophthalmic Droperette EA EYE SCH (11:49)
== END 2022-06-11 11:48 | disposition home or self-care (01) ==
LOC: SDC 05:45 → SJJU 06:46 → SDC 06-11 11:48
PROVIDERS: ATTEND Orthopaedic Surgery
PROC: 0RRK00Z Replacement of Left Shoulder Joint with Reverse Ball and Socket Synthetic Substitute, Open Approach (ICD-10-PCS; principal; 2022-06-10)
DX: M19.012 Primary osteoarthritis, left shoulder (principal); G47.33 Obstructive sleep apnea (adult) (pediatric); K21.9 Gastro-esophageal reflux disease without esophagitis; N40.0 Benign prostatic hyperplasia without lower urinary tract symptoms; Z79.899 Other long term (current) drug therapy; Z20.822 Contact with and (suspected) exposure to COVID-19
CPT/HCPCS: 23472; 97110 ×2; 97116; 97530; A4306; C1713 ×5; C1776 ×3; J3370; U0002; J1100; J1885; J2405; J2704; J2795; J3490

== ENCOUNTER 2022-07-07 15:23 | Observation (INO) | payer MEDICARE, OTHER ==
[~2022-07-07 15:23] MED LIST: Iopamidol-370 76% 500 ML MDV (1 ML CHARGE) ONE
[2022-07-07 16:19] LABS: #Eosinphils 0.2 thou/uL (0.0-0.7); #Lymphocytes 0.8 thou/uL (1.20-3.40); #Monocytes 0.5 thou/uL (0.11-0.59); %Basophils 0.3 % (0.0-1.0); %Eosinophils 2.4 % (0.0-10.0); %Lymphocytes 12.6 % (21.0-51.0); %Monocytes 8.2 % (0.0-10.0); %Neutrophils 76.4 % (42.0-75.0); Hemoglobin 12.8 g/dL (14.0-18.0); Mean Corpuscular HGB CONC 32.5 g/dL (32.0-36.0); Mean Corpuscular Hemoglobin 30.5 pg (27.0-31.0); Mean Corpuscular Volume 93.8 fl (78.0-98.0); Mean Platelet Volume 8.5 fL (7.4-10.4); Platelet Count 186 10x3/uL (130-400); Red Blood Cell (RBC) Count 4.19 mill/uL (4.70-6.10); White Blood Cell (WBC) Count 6.5 10x3/uL (4.8-10.8)
[2022-07-07] MEDS ORDERED: Aspirin Chewable 81 MG TAB ONE (16:35)
[2022-07-07 16:39] LABS: ALT (SGPT) 14 U/L (8-55); AST (SGOT) 19 U/L (5-34); Albumin 3.7 g/dL (3.4-4.8); Alkaline Phosphatase 85 U/L (40-110); Anion Gap 14 mmol/L (10-20); BUN (Urea Nitrogen) 12 mg/dL (8.4-25.7); Bilirubin, Total 0.4 mg/dL (0.2-1.2); Calc. Creatinine Clearance 0 mL/min (70-130); Calcium 8.9 mg/dL (7.8-10.44); Carbon Dioxide 24 mmol/L (23-31); Chloride 107 mmol/L (98-107); Estimated GFR 88; Globulin 2.7 g/dL (2.4-3.5); Glucose 110 mg/dL (83-110); Potassium 3.5 mmol/L (3.5-5.1); Protein, Total 6.4 g/dL (5.8-8.1); Sodium 141 mmol/L (136-145)
[2022-07-07 20:05] VITALS: BMI 27.9
[2022-07-07] MEDS ORDERED: Ondansetron PF 4 MG/2 ML Vial IVP PRN (20:15)
[2022-07-07] MEDS ORDERED: Ondansetron ODT 4 MG TAB SL PRN (20:15)
[2022-07-07] MEDS ORDERED: Acetaminophen 325 MG TAB PO PRN (20:15)
[2022-07-07 20:38] LABS: Troponin I 0.014 ng/mL (< 0.028)
[2022-07-07] MEDS ORDERED: Nitroglycerin 0.4 MG TAB (25 Tab Bottle) SL PRN (21:17)
[2022-07-07 22:45] LABS: Troponin I 0.021 ng/mL (< 0.028)
[2022-07-08 05:32] LABS: #Eosinphils 0.3 thou/uL (0.0-0.7); #Lymphocytes 1.1 thou/uL (1.20-3.40); #Monocytes 0.5 thou/uL (0.11-0.59); %Basophils 0.8 % (0.0-1.0); %Eosinophils 5.8 % (0.0-10.0); %Lymphocytes 22.5 % (21.0-51.0); %Monocytes 10.2 % (0.0-10.0); %Neutrophils 60.7 % (42.0-75.0); Mean Corpuscular Hemoglobin 30.6 pg (27.0-31.0); Mean Corpuscular Volume 95.8 fl (78.0-98.0); Mean Platelet Volume 8.4 fL (7.4-10.4); Platelet Count 164 10x3/uL (130-400); RBC Distribution Width 13.2 % (11.5-14.5); Red Blood Cell (RBC) Count 3.94 mill/uL (4.70-6.10); White Blood Cell (WBC) Count 4.9 10x3/uL (4.8-10.8)
[2022-07-08 05:57] LABS: Anion Gap 11 mmol/L (10-20); BUN (Urea Nitrogen) 10 mg/dL (8.4-25.7); Calc. Creatinine Clearance 89 mL/min (70-130); Calcium 8.7 mg/dL (7.8-10.44); Carbon Dioxide 24 mmol/L (23-31); Cardiac Risk 2.9 (Less than 4.5); Chloride 110 mmol/L (98-107); Cholesterol 144 mg/dl (< 200 Desired); Estimated GFR 91; Glucose 97 mg/dL (83-110); HDL Cholesterol 50 mg/dL (>60 Neg Risk); LDL Cholesterol, Calculated 75 mg/dL; Sodium 141 mmol/L (136-145); Triglycerides 97 mg/dL (Less than 150)
[2022-07-08] MEDS ORDERED: Regadenoson 0.4 MG/5 ML SYRINGE ONE (08:37)
[2022-07-08] MEDS ORDERED: Non-Formulary Item 1 EACH (Nebivolol Hcl [Bystolic] 20 MG Tablet) PO SCH (09:00)
[2022-07-08] MEDS ORDERED: Cholecalciferol 1,000 UNITS (25 MCG) TAB PO SCH (09:00)
[2022-07-08] MEDS ORDERED: Leflunomide 10 mg Tablet PO SCH (09:00)
[2022-07-08] MEDS ORDERED: Artificial Tear Sol 15 ML BOT EA EYE SCH (09:00)
[2022-07-08] MEDS ORDERED: PARoxetine 20 MG TAB PO SCH ×2 (09:00→12:26)
[2022-07-08] MEDS ORDERED: Polyvinyl Alcohol 1.4%/Povidone 0.6% Opth Drops EA EYE SCH (09:00)
[2022-07-08] MEDS ORDERED: Finasteride 5 MG TAB PO SCH (09:00)
[2022-07-08 11:55] VITALS: TEMP 97.9
[2022-07-08 12:12] VITALS: BP 170/77
[2022-07-08] MEDS ORDERED: Pramipexole Di-HCl 0.125 MG TAB PO SCH (21:00)
[2022-07-08] MEDS ORDERED: Tamsulosin HCl 0.4 MG CAP PO SCH (21:00)
[2022-07-08] MEDS ORDERED: Nebivolol HCl 5 MG TAB PO SCH (21:00)
[2022-07-09] MEDS ORDERED: METHYLPHENIDATE HCL 40 MG PO SCH (09:00)
[2022-07-09] MEDS ORDERED: Lisinopril 20 MG TAB PO SCH (09:00)
== END 2022-07-08 16:01 | disposition home or self-care (01) ==
LOC: ERS 15:23 → 2SW 18:28
PROVIDERS: ADMIT Internal Medicine; ATTEND Internal Medicine
DX: R07.9 Chest pain, unspecified (principal); R00.2 Palpitations; R00.0 Tachycardia, unspecified; I10 Essential (primary) hypertension; M06.9 Rheumatoid arthritis, unspecified; N40.0 Benign prostatic hyperplasia without lower urinary tract symptoms; Z79.899 Other long term (current) drug therapy
CPT/HCPCS: 71046; 71275; 78452; 80048; 80061; 83880; 84484 ×2; 85025; 93005; 93017; 99285; A9500; 36415; 80053; 84443; G0378; J2785; Q9967

== ENCOUNTER 2022-12-02 17:25 | Emergency (ER) | payer MEDICARE, OTHER ==
[2022-12-02 18:16] LABS: #Basophils 0.1 thou/uL (0.0-0.2); #Eosinphils 0.2 thou/uL (0.0-0.7); #Monocytes 0.5 thou/uL (0.11-0.59); #Neutrophils 4.7 thou/uL (1.40-6.50); %Basophils 0.8 % (0.0-1.0); %Eosinophils 2.6 % (0.0-10.0); %Lymphocytes 11.9 % (21.0-51.0); %Monocytes 8.7 % (0.0-10.0); %Neutrophils 75.7 % (42.0-75.0); Hematocrit 39.8 % (42.0-52.0); Hemoglobin 12.4 g/dL (14.0-18.0); Mean Corpuscular HGB CONC 31.2 g/dL (32.0-36.0); Mean Corpuscular Hemoglobin 29.1 pg (27.0-31.0); Mean Corpuscular Volume 93.4 fl (78.0-98.0); Mean Platelet Volume 11.1 fL (7.4-10.4); Platelet Count 167 10x3/uL (130-400); RBC Distribution Width 14.5 % (11.5-14.5); Red Blood Cell (RBC) Count 4.26 mill/uL (4.70-6.10); White Blood Cell (WBC) Count 6.2 10x3/uL (4.8-10.8)
[2022-12-02 18:36] LABS: ALT (SGPT) 19 U/L (8-55); AST (SGOT) 23 U/L (5-34); Alkaline Phosphatase 74 U/L (40-110); Anion Gap 8 mmol/L (10-20); BUN (Urea Nitrogen) 16 mg/dL (8.4-25.7); Bilirubin, Total 0.4 mg/dL (0.2-1.2); Calc. Creatinine Clearance 0 mL/min (70-130); Calcium 8.8 mg/dL (7.8-10.44); Carbon Dioxide 28 mmol/L (23-31); Chloride 105 mmol/L (98-107); Estimated GFR 78; Globulin 2.7 g/dL (2.4-3.5); Glucose 104 mg/dL (83-110); Lipase 35 U/L (8-78); Potassium 4.1 mmol/L (3.5-5.1); Protein, Total 6.7 g/dL (5.8-8.1); Sodium 137 mmol/L (136-145)
[2022-12-02 19:09] LABS: Bacteria/HPF None Seen HPF (None Seen); Bilirubin Negative (Negative); Blood, Urine Negative (Negative); CAUTI Indications for Culture Alt mental st,lethar; Clarity Clear (Clear); Glucose, Urine (Dipstick) Normal (Negative); Ketone, Urine Negative (Negative); Leukocyte Negative Leu/uL (Negative); Nitrite Negative (Negative); Protein, Urine (Dipstick) 50 mg/dL (Neg-Trace); RBC/HPF 0-3 HPF (0-3); Specific Gravity, Urine 1.036 (1.002-1.036); Squamous Epithelial 0-3 HPF (0-3); Urobilinogen Normal mg/dL (Less than 2); WBC/HPF 0-3 HPF (0-3); pH, Urine 5.5 (5.0-9.0)
[2022-12-02 19:13] LABS: Urine Culture Reflex No No
[2022-12-02 19:39] LABS: Troponin I Less than 0.010 ng/mL (< 0.028)
== END 2022-12-02 23:18 | disposition home or self-care (01) ==
LOC: ERS 17:25
DX: R41.3 Other amnesia (principal)
CPT/HCPCS: 36415; 70450; 71045; 80053; 81001; 82140; 83690; 84484; 85025; 93005